=== PATIENT | male | born 1965 | race Caucasian/White ===

== ENCOUNTER 2019-01-12 19:26 | Inpatient (IN) | payer BC ==
[2019-01-12 20:25] LABS: #Basophils 0.1 thou/uL (0.0-0.2); #Lymphocytes 1.3 thou/uL (1.20-3.40); #Monocytes 0.7 thou/uL (0.11-0.59); #Neutrophils 9.1 thou/uL (1.40-6.50); %Basophils 0.5 % (0.0-1.0); %Eosinophils 0.4 % (0.0-10.0); %Lymphocytes 11.4 % (21.0-51.0); %Monocytes 6.3 % (0.0-10.0); %Neutrophils 81.4 % (42.0-75.0); Hemoglobin 14.5 g/dL (14.0-18.0); Mean Corpuscular HGB CONC 34.1 g/dL (32.0-36.0); Mean Corpuscular Volume 93.8 fL (78.0-98.0); Mean Platelet Volume 7.4 fL (7.4-10.4); Platelet Count 210 thou/uL (130-400); RBC Distribution Width 11.5 % (11.5-14.5); Red Blood Cell (RBC) Count 4.54 mill/uL (4.70-6.10); White Blood Cell (WBC) Count 11.1 thou/uL (4.8-10.8)
[2019-01-12 20:52] LABS: Acetaminophen Less than 6.0 mcg/mL (10.0-30.0); Alcohol 76 mg/dL (Less than 10); Salicylate Less than 8.0 mg/dL (15.0-30.0)
[2019-01-12 20:56] LABS: ALT (SGPT) 23 U/L (8-55); AST (SGOT) 26 U/L (5-34); Albumin 3.8 g/dL (3.5-5.0); Alkaline Phosphatase 53 U/L (40-110); Anion Gap 20 mmol/L (10-20); BUN (Urea Nitrogen) 6 mg/dL (8.4-25.7); Bilirubin, Total 0.5 mg/dL (0.2-1.2); Calc. Creatinine Clearance 0 mL/min (70-130); Calcium 8.3 mg/dL (7.8-10.44); Carbon Dioxide 13 mmol/L (22-29); Chloride 101 mmol/L (98-107); Estimated GFR-MDRD 78; Globulin 2.6 g/dL (2.4-3.5); Glucose 104 mg/dL (70-105); Potassium 4.2 mmol/L (3.5-5.1); Protein, Total 6.4 g/dL (6.0-8.3); Sodium 130 mmol/L (136-145)
--- NOTE | 2019-01-12 21:20 | RAD ---
LEFT FOREARM TWO VIEWS: History: Injury. Left forearm pain. FINDINGS/IMPRESSION: Left radius and ulna appear intact. POS: [facility]
--- NOTE | 2019-01-12 21:45 | CT ---
CT BRAIN WITHOUT CONTRAST: Date: 01/12/19 HISTORY: Fall. Loss of consciousness. FINDINGS: No evidence of acute infarct, hemorrhage, midline shift, or abnormal extra-axial fluid collections ar e seen. The ventricular size is appropriate and the basilar cisterns are patent. The bony calvarium i s intact. There is mucosal disease in the paranasal sinuses. IMPRESSION: No CT evidence of acute intracranial process. POS: [facility]
--- NOTE | 2019-01-12 21:46 | CT ---
CT CERVICAL SPINE WITH CORONAL AND SAGITTAL REFORMATIONS: Date: 01/12/19 HISTORY: Fall, neck pain. FINDINGS/IMPRESSION: There are degenerative changes, most prominent at C4-5 level. No acute fracture, subluxation, or face t malalignment identified. POS: [facility]
[2019-01-12] MEDS ORDERED: Morphine 4 MG/ML VIAL ONE (22:13)
--- NOTE | 2019-01-12 23:51 | MRI ---
MRI CERVICAL SPINE WITHOUT CONTRAST: History: Fall, neck pain. FINDINGS: Correlation is made with the CT scan performed earlier today at 8:22 p.m. Vertebral body heights are maintained. Multilevel degenerative changes are seen manifested by disc os teophyte complexes and facet hypertrophic changes. There is central canal stenosis at C4-5 and C6-7 l evels with impingement of the anterior spinal cord. There is cord edema noted at the C4 & C5 level. There is bilateral severe neural foraminal stenosis at C4-5 level, mild left sided neural foraminal s tenosis at C4, C5, C6 level and bilateral neural foraminal stenosis at C6-7 level (moderate on the ri ght and mild on the left). No tonsillar herniation is seen. IMPRESSION: 1. Degenerative changes with central canal and neural foraminal stenoses as above. 2. Cord impingement at C4-5 and C6-7 levels with cord edema at C4-5 level. POS: [facility]
[2019-01-13] MEDS ORDERED: Dexamethasone 10 MG/ML VIAL ONE (00:01)
[2019-01-13] MEDS ORDERED: Morphine 4 MG/ML VIAL ONE (00:01)
[2019-01-13] MEDS ORDERED: Dextrose 5% in Water 1,000 ML IV PRN (00:44)
[2019-01-13] MEDS ORDERED: Morphine 2 MG/ML SYRINGE SLOW IVP PRN (00:44)
[2019-01-13] MEDS ORDERED: Ondansetron ODT 4 MG TAB PO PRN (00:44)
[2019-01-13] MEDS ORDERED: Ondansetron PF 4 MG/2 ML Vial IVP PRN (00:44)
[2019-01-13] MEDS ORDERED: Dextrose 50% Abboject 50 ML SYRINGE SLOW IVP PRN (00:44)
[2019-01-13] MEDS ORDERED: traMADol HCl 50 MG TAB PO PRN (00:56)
[2019-01-13 01:09] LABS: Phosphorus 3.1 mg/dL (2.3-4.7)
[2019-01-13 01:20] LABS: Magnesium 1.8 mg/dL (1.6-2.6)
[2019-01-13] MEDS ORDERED: Magnesium 2 GM/50 ML 2 GM in Premix Bag 1 BAG IVPB SCH (02:00)
--- NOTE | 2019-01-13 02:24 | CON ---
DATE OF CONSULTATION: HISTORY OF PRESENT ILLNESS: The patient is a 53-year-old male, who came to the Emergency Department at [facility] following a series of what sound to be syncopal events earlier today. First of which, the patient states was around 8 o'clock this morning and then around noon and then most recently was around 5 or 6 this evening. He does report drinking 10 beers, but states he only started to consume this around 10:30 this morning, so well after the initial syncopal event. The patient states he has one prior occurrence of this type of event happening, which usually go on related to blood pressure medications that he no longer takes. states that his blood pressure was running quite low upon arrival. However, the most reading that I has on ER records is 108/68, which admittedly is lower than his normal, but still not terribly low, as a matter of fact right now he is 125/73 in the room, which is an improvement, but not profoundly different at least not to a point where I would assume he would have syncopal events related to hypotension. The patient ultimately reported that after this last syncopal event when he came back to while on the ground, he reports full paralysis and numbness in his legs and forearms and hands. This has since abated, and he has what appears to be his baseline motor function in all 4 extremities. He does report a left-sided deltoid pain as well as a burning sensation that is diffusely over the forearms and hands. This is polydermatomal and does not seen any specific peripheral nerve distribution either. It is conceivable that this is dysesthetic pains related to spinal cord impingement. He does have new MRI performed this evening in the Emergency Department that shows severe central canal stenosis at C4-C5 and C6-C7 with associated T2 signal change within the cervical spinal cord at C4-C5 to me on the [facility] imaging. This does appear to potentially be chronic in nature as opposed to an acute injury event, but this still could be the case. At bedside, the patient is lying recumbent with [place] collar in place. It is somewhat loose likely would be better served tightened. He has good motor strength in bilateral upper extremities and bilateral lower extremities demonstrating straight leg raise bilaterally with ease, lifting them off the bed. He has no significant sensory disturbance that I can discern in the bilateral upper or bilateral lower extremities. When I reached to grab his right hand, he has sudden onset of jolting pain in the right forearm again, so this limits my range of motion and further strength testing. Pupils are equal, round, and reactive to light. Head is normocephalic, atraumatic. ASSESSMENT: Central cord syndrome. PLAN: Plan from the Neurosurgery perspective, this is a non-surgical condition at present. I discussed with the patient and his at bedside that it may be conceivable that he will need a cervical spinal surgery in the coming months, but certainly not in the acute setting here while in the hospital. The theory of central cord syndrome does fit his situation as he did have a brief momentary quadriparesis, which has now rapidly resolved, and it left some tingling what sounds like potentially dysesthetic pains in the forearms, hands. RECOMMENDATIONS: Recommendation is soft cervical collar which he already has on at all times. He will need aggressive physical therapy, occupational therapy starting in the morning. They can advance diet as tolerated. Neurosurgery will continue to follow. Job ID: [id number]
--- NOTE | 2019-01-13 03:03 | HP ---
Primary care physician, Dr. Neal. REQUESTING PHYSICIAN: Luis Herzog DO CONSULTS: Neurosurgery, Dr. Russ. HISTORY OF PRESENT ILLNESS: This is a 53-year-old gentleman who arrived to the emergency room via ground EMS after having multiple falls after passing out at home today. The patient reports falling approximately 3 times today after standing as he felt unsteady. The patient denied any chest pain or shortness of breath prior to falling. The patient does drink approximately 10 to 12 drinks every other day. The patient did have approximately 10 drinks today. He also reports having a similar episode when he was taking lisinopril. The patient no longer takes lisinopril for his blood pressure as he stopped approximately a year ago. The patient complains of burning pain sensation in both upper extremities. The patient states that it starts from the fingertips all the way above the elbows. The patient initially felt generalized weakness and was unable to move. He states he felt like he was paralyzed after the last fall, which has improved. The patient was unable to get up and a family member found him on the floor. The patient does report hitting his face on the wall. The patient denies any recent illnesses, denies any fever, cough or cold. The patient does report some sneezing recently, but has not been taking over the counter medications. The patient was given morphine 4 mg two doses for pain in the emergency room and also Decadron 10 mg IV. REVIEW OF SYSTEMS: A 10-point review of systems is negative unless otherwise indicated in the above HPI. PAST MEDICAL HISTORY: Cerebral palsy, only deficit is one leg being shorter, depression, previous suicide attempt, hypertension, hyperlipidemia. HOME MEDICATIONS: 1. Diltiazem 180 mg once a day. 2. Duloxetine 60 mg at bedtime. 3. Simvastatin 10 mg at bedtime. 4. Tamsulosin 0.4 mg at bedtime. ALLERGIES: PENICILLIN, LISINOPRIL. PAST SURGICAL HISTORY: Bilateral lens replacement. SOCIAL HISTORY: The patient lives alone, has not worked in two months due to severe knee pain, marijuana use, daily to every other day alcohol use, denies tobacco use. FAMILY HISTORY: Significant for father had a heart attack at age 49. OBJECTIVE: VITAL SIGNS: Blood pressure 136/81, pulse 60, respirations 17, temperature 97.9, and SpO2 95% on room air. GENERAL: Middle-aged gentleman, awake, alert, lying in hospital bed, well- fitting [place] collar in place. HEENT: Red contusion on the right cheek and chin, normocephalic, otherwise atraumatic, pupils equal and reactive, extraocular muscles intact, mucous membranes dry, trachea midline. NECK: Well-fitting cervical collar in place. RESPIRATORY: Equal chest rise and fall, bilateral breath sounds clear, no wheezing, rales, or rhonchi. CARDIOVASCULAR: Regular rate, regular rhythm, no murmurs. ABDOMEN: Soft, nontender, and nondistended. EXTREMITIES: Moves all extremities, normal sensation in all extremities. Strength, bilateral upper extremities 4/5, burning and tingling sensation from the fingertips all the way to above the elbows in bilateral upper extremities, lower extremities unremarkable, distal pulses 2+ in all extremities. NEUROLOGIC: Oriented to person, place, and time. Normal speech, cranial nerves intact. DIAGNOSTIC STUDIES: 1. A 12-lead EKG, sinus cecilia with a right bundle branch block. 2. Brain CT. Impression; no evidence of acute intracranial process. 3. Cervical spine CT, degenerative changes, most prominent at C4-C5 level. 4. Left forearm x-ray, left radius and ulnar appear intact. 5. Cervical spine MRI. Degenerative changes with central and neural foraminal stenosis at C4, C5, C6, and C7 levels with impingement of the anterior spinal cord. There is cord edema noted at the C4 and C5 level. 6. Chest x-ray. Impression; no acute cardiopulmonary process. LABORATORY DATA: WBC 11.1, RBC 4.54, hemoglobin 14.5, hematocrit 42.6, MCH 32, platelets 210. Sodium 130, potassium 4.2, chloride 101, carbon dioxide 13, BUN 6, creatinine 1.00, estimated GFR 78, glucose 104, calcium 8.3, phosphorus 3.1, magnesium 1.8, AST 26, ALT 23, and alkaline phos 53. Troponin I less than 0.010. Serum total protein 6.4. Plasma alcohol 76. Urinalysis and urine drug screen pending. ASSESSMENT: 1. Syncopal episode with multiple recent falls. 2. Concussion. 3. Central cord syndrome. 4. Cord impingement at C4-C5 and C6-C7 levels with cord edema at C4-C5 level. 5. Hyponatremia. 6. History of hypertension, hyperlipidemia, cerebral palsy, alcohol abuse, marijuana abuse, and depression. PLAN: We will admit the patient to the intermediate care unit. Neurosurgery has been consulted and recommended the [place] collar at all times. Regular diet as tolerated. We will place a PT/OT consult to evaluate and treat. We will start the patient on Serax, multivitamin, and thiamine as he is a daily to every other day drinker. We will obtain a 2D echo and carotid ultrasound for a syncopal workup. We will get q.2 hours neuro checks. If unchanged, then can do q.4 neuro checks at noon tomorrow. The plan was discussed with the patient and the patient's sister, who agreed. The plan will be discussed with the attending after this dictation. Job ID: [id number] MTDD
[2019-01-13 07:48] LABS: Anion Gap 18 mmol/L (10-20); BUN (Urea Nitrogen) 7 mg/dL (8.4-25.7); Calc. Creatinine Clearance 0 mL/min (70-130); Calcium 9.4 mg/dL (7.8-10.44); Carbon Dioxide 16 mmol/L (22-29); Chloride 103 mmol/L (98-107); Estimated GFR-MDRD 79; Glucose 136 mg/dL (70-105); Potassium 4.4 mmol/L (3.5-5.1); Sodium 133 mmol/L (136-145)
--- NOTE | 2019-01-13 08:32 | RAD ---
PORTABLE UPRIGHT FRONTAL CHEST RADIOGRAPH: DATE: 01/13/2019. COMPARISON: None. HISTORY: Falls, syncope, hypotension. FINDINGS: There is mild prominence of the cardiac silhouette. No focal consolidation or alveolar edema. IMPRESSION: No acute findings. POS: [facility]
--- NOTE | 2019-01-13 08:50 | ULT ---
CAROTID ARTERIAL DOPPLER ULTRASOUND: DATE: 01/13/19 COMPARISON: None. HISTORY: Syncope. TECHNIQUE: Multiplanar [place] scale sonographic imaging of the arterial structures of the neck obtained with color flow/spectral analysis. FINDINGS: Antegrade blood flow and normal arterial waveforms are documented within the carotid and vertebral sy stem bilaterally. VESSEL PSV (cm/sec) Right CCA 118 Right ICA 75 Right ECA 85 Left CCA 119 Left ICA 63 Left ECA 101 ICA/CCA ratio is 0.6 on the right and 0.5 on the left. IMPRESSION: No hemodynamically significant stenosis on the basis of sonographic velocity criteria. POS: [facility]
[2019-01-13] MEDS: Senokot S 8.6-50 MG TAB PO SCH ×2 (09:22→21:14)
[2019-01-13] MEDS: Gabapentin 300 MG CAP PO SCH ×3 (09:23→21:14)
[2019-01-13] MEDS ORDERED: Thiamine 100 MG TAB ONE (09:28)
[2019-01-13] MEDS ORDERED: Famotidine 20 MG TAB ONE (09:28)
[2019-01-13] MEDS: Thiamine 100 MG TAB PO SCH (09:30)
[2019-01-13] MEDS: Famotidine 20 MG TAB PO SCH ×2 (09:31→21:14)
[2019-01-13 10:55] VITALS: BMI 34.9
--- NOTE | 2019-01-13 11:02 | PRG ---
DATE OF SERVICE: 01/13/2019 SUBJECTIVE: Mr. Heredia is a 53-year-old man who has been falling. He fell from a ground level position prior to this admission. The patient was found with cord edema at C4-5 levels. No cervical spine fractures are noted, however. Clinical examination is consistent with acute central cord syndrome. At the time of my evaluation, the patient is awake and alert. Pamela Coma Scale is 15. He reports improving strength with his upper and lower extremities. OBJECTIVE: HEENT: Pupils are equal, round, and reactive to light and accommodation. HEART: Reveals regular rate and rhythm. No murmurs or gallops auscultated. LUNGS: Clear to auscultation bilaterally. Breathing, regular and nonlabored. ABDOMEN: Soft, nontender, and nondistended. NEUROLOGIC: Cranial nerves 2 through 12 grossly intact bilaterally. MUSCULOSKELETAL: Reveals 4/5 muscle strength in bilateral upper and lower extremities. LABORATORY FINDINGS: Include metabolic profile; sodium 133, potassium is 4.4, chloride is 103, bicarb is 16, BUN 7, creatinine 0.99, and glucose 136. IMPRESSIONS: 1. Post injury day #1 status post ground level fall. 2. Central cord syndrome, improving. 3. History of chronic alcoholism. PLAN: 1. Increase activity per Physical and Occupational therapy. 2. Anticipate discharge to inpatient rehabilitation versus home with outpatient physical and occupational therapy within the next 24 to 48 hours. We will maintain prophylaxis against VTE and DVT. Above findings and plan discussed with the patient who indicates understanding information given. I have answered his questions. Job ID: [id number]
[2019-01-13] MEDS: Sodium Chloride 0.9% 1,000 ML IV SCH ×2 (13:08→13:09)
[2019-01-13] MEDS: Acetaminophen 500 MG TAB PO SCH ×3 (13:11→18:30)
[2019-01-13] MEDS: traMADol HCl 50 MG TAB PO PRN ×2 (13:12→18:30)
[2019-01-13] MEDS: Oxazepam 10 MG CAP PO SCH ×3 (13:52→21:14)
[2019-01-13] MEDS: Multivitamin W/ Minerals 1 TAB PO SCH (14:52)
--- NOTE | 2019-01-13 16:30 | PRG ---
DATE OF SERVICE: 01/13/2019 Mr. Heredia is a 53-year-old gentleman with a history of recent falls and questionable syncopal events. He presented to the ER with quadriparesis, where he underwent imaging, which was negative for fracture, but did show 2 areas of significant cervical spondylitic stenosis at C4-C5 and C6-C7. There is also a T2 signal within the spinal cord, consistent with injury. Fortunately, for him, his neurologic function is slowly improving. He is currently wearing a cervical spine collar. His injury is consistent with a central cord phenomenon. From a neurosurgical perspective, he will not require acute neurosurgical intervention, but will likely need a decompressive procedure over the following weeks. He can be discharged to rehab or appropriate home with outpatient physical therapy as needed. He should continue to wear the cervical spine collar. We will make plans for outpatient followup with him within the next 1-2 weeks. Job ID: [id number]
[2019-01-13 20:35] LABS: Amphetamine Not Detected (NotDetected); Barbiturates Screen Not Detected (NotDetected); Benzodiazepine Screen Detected (NotDetected); Cocaine Metabolite Screen Not Detected (NotDetected); Medtox Control Line Valid? VALID (VALID); Medtox Reader # READER 4; Methadone Not Detected (NotDetected); Methamphetamine Not Detected (NotDetected); Opiate Screen Detected (NotDetected); Oxycodone Screen Not Detected (NotDetected); Phencyclidine (PCP) Not Detected (NotDetected); THC/Cannabinoid Screen Detected (NotDetected); Tricyclic Screen Not Detected (NotDetected)
[2019-01-13 20:38] LABS: Bacteria/HPF None Seen HPF (None Seen); Bilirubin Negative (Negative); Blood, Urine Negative (Negative); Clarity Clear (Clear); Glucose, Urine (Dipstick) 150 mg/dL (Negative); Leukocyte Negative Leu/uL (Negative); Mucous/LPF 1+ LPF (<2+); Nitrite Negative (Negative); Protein, Urine (Dipstick) 30 mg/dL (Neg-Trace); Squamous Epithelial None Seen HPF (0-3); Urobilinogen Normal mg/dL (Less than 2); WBC/HPF 0-3 HPF (0-3)
[2019-01-13 20:40] LABS: Urine Culture Reflex No No
[2019-01-13] MEDS: Magnesium Chloride 64 MG TAB PO SCH (21:14)
--- NOTE | 2019-01-13 22:17 | PRG ---
DATE OF SERVICE: 01/13/2019 SUBJECTIVE: The patient remains on the surgical floor. The patient is hospital day #1, status post fall from ground level with multiple falls. The patient is currently resting comfortably with a well-fitting [place] collar in place. The patient reports he has finally been able to rest. The patient reports that the burning sensation and strength are improving in his upper extremities. The patient voices no complaints or concerns at this time. OBJECTIVE: VITAL SIGNS: Stable, afebrile. GENERAL: Middle-aged gentleman, resting comfortably, in no acute distress. LUNGS: Breathing is regular and nonlabored. NEUROLOGICAL: Cranial nerves intact. MUSCULOSKELETAL: Upper manager cardiac cath strength 4/5 bilateral. DIAGNOSTICS: Echocardiogram, impression, ejection fraction is visually estimated at 50% to 55%, E/A flow reversal noted suggestive of diastolic dysfunction. Mild mitral regurg present. Mild tricuspid regurgitation. IMPRESSION: 1. Post injury day #1 status post ground level fall. 2. Central cord syndrome, improving. 3. History of chronic alcoholism. PLAN: Continue to increase physical and occupational therapy. The patient is pending placement to inpatient rehab for continued physical and occupational therapy. We will continue mechanical DVT prophylaxis. The plan was discussed with the patient and his family who agree. Job ID: [id number] MTDD
[2019-01-14] MEDS: Acetaminophen 500 MG TAB PO SCH ×4 (00:12→18:51)
[2019-01-14] MEDS: hydrALAZINE 20 MG/ML VIAL SLOW IVP PRN (00:13)
[2019-01-14] MEDS: Oxazepam 10 MG CAP PO SCH ×3 (06:28→21:20)
[2019-01-14] MEDS ORDERED: cloNIDine 0.1 MG TAB PO PRN (06:39)
[2019-01-14] MEDS: Losartan 25 MG TAB PO SCH (08:22)
[2019-01-14] MEDS: Tamsulosin HCl 0.4 MG CAP PO SCH (08:22)
[2019-01-14] MEDS: Senokot S 8.6-50 MG TAB PO SCH ×2 (08:22→21:20)
[2019-01-14] MEDS: Simvastatin 40 MG TAB PO SCH (08:23)
[2019-01-14] MEDS: DULoxetine 60 MG CAP PO SCH (08:23)
[2019-01-14] MEDS: Famotidine 20 MG TAB PO SCH ×2 (08:23→21:20)
[2019-01-14] MEDS: Gabapentin 300 MG CAP PO SCH ×3 (08:23→21:20)
[2019-01-14] MEDS: Multivitamin W/ Minerals 1 TAB PO SCH (08:23)
[2019-01-14] MEDS: Thiamine 100 MG TAB PO SCH (08:24)
[2019-01-14] MEDS: Enoxaparin Sodium 40 MG/0.4 ML SYRINGE SC SCH (08:24)
--- NOTE | 2019-01-14 13:31 | PRG ---
DATE OF SERVICE: 01/14/2019 SUBJECTIVE: The patient was seen this morning lying in bed, C-collar in place with no signs of acute distress. He reported pain is well controlled. He had no acute events overnight and had no complaints at the time of my evaluation. He was able to ambulate with physical therapy. OBJECTIVE: VITAL SIGNS: Temperature 98.2, pulse 90, respirations 18, oxygen saturation 96% on room air, blood pressure 144/90. GENERAL: Well-appearing middle-aged male, lying in bed with no signs of acute distress. PULMONARY: Equal chest rise and fall, clear breath sounds bilaterally. No signs of acute respiratory distress. CARDIAC: Regular rate and rhythm. No murmurs, gallops, rubs. GI: Abdomen is soft, nontender, nondistended. EXTREMITIES: 2+ pulses in all extremities. Gross motor and sensation are intact. 4/5 strength in bilateral upper extremities and hand riding teacher. NEUROLOGIC: GCS is 15. LABORATORY FINDINGS: There are no new laboratory findings to discuss. DIAGNOSTIC FINDINGS: There are no new diagnostic findings to report. ASSESSMENT: 1. Status post syncopal fall. 2. Central cord syndrome with a segment of C4 through C5 spinal stenosis. 3. Hyponatremia, improving, likely chronic. 4. Acute alcohol intoxication, resolved. 5. History of hypertension, cerebral palsy, depression, and alcohol abuse. PLAN: Continue current diet and pain regimen. Continue physical and occupational therapy. We restarted the patient's home losartan today for better blood pressure control. Continue other home medications. Continue Serax, vitamin, multivitamins and folic acid. Carotid ultrasound and echo studies demonstrated no cardiac etiology for syncopal type episodes. This is likely due to alcohol abuse and withdrawal type symptoms. We will continue to closely monitor the patient's mentation and blood pressure. The patient is pending discharge to acute rehab facility. He is ready for discharge at this time. The patient was discussed with Dr. Moreno before this dictation. Job ID: [id number]
[2019-01-14] MEDS: Magnesium Chloride 64 MG TAB PO SCH (13:57)
[2019-01-14] MEDS: traMADol HCl 50 MG TAB PO PRN (18:50)
[2019-01-15] MEDS: Acetaminophen 500 MG TAB PO SCH ×4 (01:13→18:35)
--- NOTE | 2019-01-15 03:06 | PRG ---
DATE OF SERVICE: 01/14/2019 SUBJECTIVE: Patient was seen this evening on the surgical floor. Patient resting comfortably, in no acute distress. The patient's vital signs are stable and the patient remains afebrile. PLAN: Continue supportive care. Continue [place] collar at all times. The patient is pending placement to inpatient rehab. Job ID: [id number]
[2019-01-15] MEDS: hydrALAZINE 20 MG/ML VIAL SLOW IVP PRN (04:21)
[2019-01-15] MEDS: Oxazepam 10 MG CAP PO SCH ×3 (06:12→21:21)
[2019-01-15] MEDS: Thiamine 100 MG TAB PO SCH (08:20)
[2019-01-15] MEDS: Famotidine 20 MG TAB PO SCH ×2 (08:20→21:20)
[2019-01-15] MEDS: Senokot S 8.6-50 MG TAB PO SCH ×2 (08:20→21:20)
[2019-01-15] MEDS: Gabapentin 300 MG CAP PO SCH ×3 (08:20→21:20)
[2019-01-15] MEDS: Tamsulosin HCl 0.4 MG CAP PO SCH (08:21)
[2019-01-15] MEDS: Simvastatin 40 MG TAB PO SCH (08:21)
[2019-01-15] MEDS: Enoxaparin Sodium 40 MG/0.4 ML SYRINGE SC SCH (08:21)
[2019-01-15] MEDS: Multivitamin W/ Minerals 1 TAB PO SCH (08:21)
[2019-01-15] MEDS: DULoxetine 60 MG CAP PO SCH (08:21)
[2019-01-15] MEDS: Losartan 25 MG TAB PO SCH (08:21)
--- NOTE | 2019-01-15 15:49 | PRG ---
DATE OF SERVICE: 01/15/2019 SUBJECTIVE: The patient was seen this morning during rounds. He was lying in bed, resting comfortably. C-collar was in place. Reported pain was well controlled. He was tolerating a regular diet. He is working with Physical and Occupational Therapy. OBJECTIVE: VITAL SIGNS: Temperature 98.5, pulse 86, respirations 18, oxygen saturation 95% on room air, and blood pressure 143/92. GENERAL: Well-appearing, middle-aged male, lying in bed with no signs of acute distress. PULMONARY: Equal chest rise and fall. Clear breath sounds bilaterally. No signs of acute respiratory distress. CARDIAC: Regular rate and rhythm. No murmurs, gallops, or rubs. GI: Abdomen is soft, nontender, nondistended. EXTREMITIES: 2+ pulses in all extremities. Gross motor and sensation are intact. 4/5 strength in bilateral upper extremities and handgrip, 5/5 strength in bilateral lower extremities. NEUROLOGIC: GCS is 15. LABORATORY FINDINGS: There are no new laboratory findings to discuss. DIAGNOSTIC FINDINGS: There are no new diagnostic findings to discuss. ASSESSMENT: 1. Status post syncopal fall. 2. Central cord syndrome with segment of C4 through C5 spinal stenosis. 3. Hyponatremia, likely chronic, improving. 4. Acute alcohol intoxication, resolved. 5. History of hypertension, cerebral palsy, depression, and alcohol abuse. PLAN: Continue current diet and pain regimen. Continue physical and occupational therapy. The patient is back on all of his home medications as clinically indicated. Continue Serax, multivitamins, folic acid, and thiamine. Cardiac workup is negative for syncopal type fall. The patient is ready for discharge at this time. He is pending placement in acute rehab facility. He has been accepted to the facility, however, we are waiting for insurance approval. We will continue to monitor the patient at this time. This patient was seen and examined by Dr. Moreno and myself this morning during rounds. Job ID: [id number]
--- NOTE | 2019-01-16 00:07 | PRG ---
DATE OF SERVICE: SUBJECTIVE: Patient remains on the surgical floor. Patient is currently resting comfortably with a well-fitting cervical collar in place. Patient's vital signs are stable. Patient remains afebrile. PLAN: Patient is pending placement to inpatient rehab, most likely, patient will be accepted tomorrow. Continue supportive care and pain regimen. Job ID: [id number]
[2019-01-16] MEDS: Acetaminophen 500 MG TAB PO SCH ×2 (00:24→06:07)
[2019-01-16] MEDS: Oxazepam 10 MG CAP PO SCH (06:07)
[2019-01-16] MEDS: Enoxaparin Sodium 40 MG/0.4 ML SYRINGE SC SCH (08:05)
[2019-01-16] MEDS: Famotidine 20 MG TAB PO SCH (08:06)
[2019-01-16] MEDS: Senokot S 8.6-50 MG TAB PO SCH (08:06)
[2019-01-16] MEDS: Losartan 25 MG TAB PO SCH (08:06)
[2019-01-16] MEDS: Tamsulosin HCl 0.4 MG CAP PO SCH (08:06)
[2019-01-16] MEDS: DULoxetine 60 MG CAP PO SCH (08:06)
[2019-01-16] MEDS: Gabapentin 300 MG CAP PO SCH (08:07)
[2019-01-16] MEDS: Multivitamin W/ Minerals 1 TAB PO SCH (08:07)
[2019-01-16] MEDS: Simvastatin 40 MG TAB PO SCH (08:07)
[2019-01-16] MEDS: Thiamine 100 MG TAB PO SCH (08:07)
[2019-01-16 10:47] VITALS: BP 129/85; TEMP 98.3
--- NOTE | 2019-01-17 11:22 | DIS ---
DATE OF ADMISSION: 01/13/2019 DATE OF DISCHARGE: 01/16/2019 ADMISSION DIAGNOSES: Syncopal fall, central cord syndrome with C4 through C5 cord edema, and hyponatremia. DISCHARGE DIAGNOSES: Syncopal fall, central cord syndrome with C4 through C5 cord edema, and hyponatremia. CONSULTING PHYSICIAN: Dr. Russ of Neurosurgery. PROCEDURES: None. HOSPITAL COURSE: The patient is a 53-year-old male, who presented to the emergency department after having multiple syncopal falls while intoxicated. The patient was found to have central cord syndrome with cord edema at C4 through C5. Neurosurgery was consulted, who recommended conservative management with [place] collar and followup in 1 to 2 weeks. The patient received physical and occupational therapy as well as a workup for syncope, which was negative. His lower extremity and upper extremity weakness are both improved, and he was discharged home ultimately as he was not approved by insurance to go to rehab. He will receive outpatient physical therapy. At the time of discharge, the patient's pain was well controlled. He was ambulating without difficulty. He was tolerating his diet, and he was voiding without issues. DISCHARGE DISPOSITION: Home. DISCHARGE CONDITION: Satisfactory. PHYSICAL EXAMINATION: VITAL SIGNS: Temperature 98.5, pulse 86, respirations 18, oxygen saturation 94% on room air, blood pressure 148/101. GENERAL: A well-appearing, middle-aged male, sitting up in chair with no signs of acute distress. PULMONARY: Equal chest rise and fall. Clear breath sounds bilaterally. No signs of acute respiratory distress. CARDIAC: Regular rate and rhythm. No murmurs, gallops, or rubs. GASTROINTESTINAL: Soft, nontender, nondistended. EXTREMITIES: 2+ pulses in all extremities. Gross motor and sensation are intact. 4/5 strength in bilateral upper extremities, 5/5 strength in bilateral lower extremities. NEUROLOGIC: GCS is 15. C-collar in place and fitting appropriately. DISCHARGE INSTRUCTIONS: The patient was discharged home with home physical therapy. Activity as tolerated. Heart healthy diet. C-collar and walker. DISCHARGE MEDICATIONS: Include, 1. Tylenol. 2. Cardizem. 3. Cymbalta. 4. Gabapentin. 5. Losartan. 6. Simvastatin. 7. Flomax. 8. Tramadol. FOLLOWUP APPOINTMENTS: The patient is to follow up with Dr. Russ in 1 to 2 weeks. No need for followup with Dr. Moreno. This is a summary of the patient's hospitalization. For full details, please see his medical record in its entirety. Job ID: [id number]
--- NOTE | 2019-01-17 20:50 | PQF ---
MARQUIS VERAS LAYLA, [place] [id number] [facility] [id number] CLINICAL DOCUMENTATION CLARIFICATION FORM: POST DISCHARGE Addendum to original discharge summary date: ____ Late entry note date: __ DATE: 01/17/19 ATTN: Yu Agudelo Please exercise your independent, professional judgment in responding to the clarification form. Clinical indicators are provided on the bottom of this form for your review Can you please further specify if Quadriparesis is ruled in or ruled out? Quadriparesis [ X ] Ruled in diagnosis [ X ] Continue to treat [ ] Resolved [ ] Ruled out diagnosis [ ] Cannot rule out diagnosis [ ] Other diagnosis please specify [ ] Unable to determine In addition, please specify: Present on Admission (POA): [ X ] Yes [ ] No [ ] Unable to determine For continuity of documentation, please document condition throughout progress notes and discharge summary. Thank You. CLINICAL INDICATORS - SIGNS / SYMPTOMS / LABS H and P pg.1- moves all extremities, normal sensation in all extremities Consult Dr. Gómez pg.1 01/13- reports full paralysis and numbness in his legs and fore arms and hands Consult Dr. Gómez pg.2 01/13- he did have brief momentary quadriparesis, which has now rapidly resolved PN 01/13 Dr. Russ pg.1- he presented to the ER with quadriparesis DS pg.1- found to have central cord syndrome with cord edema at C4 through C5 DS pg.1- his lower extremity and upper extremity weakness are both improved RISK FACTORS Syncopal episodes and Multiple falls- H and P pg.3 cerebral palsy- H and P pg.1 Hypertension- H and P pg.1 Hyperlipidemia- H and P pg.1 Central cord syndrome- H and P pg.3 Alcohol abuse- H and P pg.3 TREATMENTS Physical and Occupational therapy- DS pg.1 CT Brain 01/[address] 01/12 Cervical Spine MRI Cervical collar- PN 01/15 IV Fluids- MAR (This form is maintained as a part of the permanent medical record) 2014 [employer]. All Rights Reserved Mike [email or web address] [not provided] MTDD
== END 2019-01-16 11:15 | disposition home health service (06) | DRG 52 ==
LOC: ERS 19:26 → ERHOLD 01-13 02:01 → SURG A 01-13 10:37
PROVIDERS: ADMIT Neurological Surgery; ATTEND Neurological Surgery
DX: S14.124A Central cord syndrome at C4 level of cervical spinal cord, initial encounter (principal); G82.50 Quadriplegia, unspecified; S06.0X9A Concussion with loss of consciousness of unspecified duration, initial encounter; E87.1 Hypo-osmolality and hyponatremia; M48.02 Spinal stenosis, cervical region; G80.9 Cerebral palsy, unspecified; F32.9 Major depressive disorder, single episode, unspecified; I10 Essential (primary) hypertension; W18.30XA Fall on same level, unspecified, initial encounter; I45.10 Unspecified right bundle-branch block; F12.10 Cannabis abuse, uncomplicated; F17.210 Nicotine dependence, cigarettes, uncomplicated; F10.229 Alcohol dependence with intoxication, unspecified; E78.5 Hyperlipidemia, unspecified; Z79.899 Other long term (current) drug therapy; Z88.0 Allergy status to penicillin; Z91.81 History of falling; Z88.8 Allergy status to other drugs, medicaments and biological substances; E78.00 Pure hypercholesterolemia, unspecified; S14.0XXA Concussion and edema of cervical spinal cord, initial encounter; Y92.009 Unspecified place in unspecified non-institutional (private) residence as the place of occurrence of the external cause
CPT/HCPCS: 36415; 36416; 70450; 71045; 72125; 72141; 80048; 80053; 80306; 80307; 81001; 83735; 84100; 84484; 85025; 93005; 93306; 93880; 96374; 96375; 96376; J0360; J1100; J1650; J2270; L0120

== ENCOUNTER 2019-01-21 14:29 | Observation (INO) | payer BC ==
--- NOTE | 2019-01-21 14:56 | RAD ---
EXAM: CHEST ONE VIEW HISTORY: Low blood pressure and syncope. COMPARISON: 01/13/2019 FINDINGS: Cardiac silhouette is magnified by projection but stable in size and probably borderline enlarged. Th e pulmonary vasculature is within normal limits. The lungs are clear. The osseous structures are intact. IMPRESSION: No acute cardiopulmonary process.
[2019-01-21 15:15] LABS: #Basophils 0.1 thou/uL (0.0-0.2); #Eosinphils 0.1 thou/uL (0.0-0.7); #Monocytes 1.4 thou/uL (0.11-0.59); #Neutrophils 6.8 thou/uL (1.40-6.50); %Basophils 1.1 % (0.0-1.0); %Eosinophils 1.1 % (0.0-10.0); %Monocytes 13.3 % (0.0-10.0); %Neutrophils 65.5 % (42.0-75.0); Hemoglobin 15.8 g/dL (14.0-18.0); Mean Corpuscular HGB CONC 33.8 g/dL (32.0-36.0); Mean Corpuscular Volume 94.7 fL (78.0-98.0); Mean Platelet Volume 7.1 fL (7.4-10.4); Platelet Count 320 thou/uL (130-400); RBC Distribution Width 11.6 % (11.5-14.5); Red Blood Cell (RBC) Count 4.94 mill/uL (4.70-6.10); White Blood Cell (WBC) Count 10.3 thou/uL (4.8-10.8)
[2019-01-21 15:23] LABS: PTT 24.2 SEC (22.9-36.1); Prothrombin Time 12.8 SEC (12.0-14.7)
[2019-01-21] MEDS ORDERED: Dexamethasone 10 MG/ML VIAL ONE (15:32)
[2019-01-21 15:51] LABS: ALT (SGPT) 44 U/L (8-55); AST (SGOT) 20 U/L (5-34); Albumin 4.5 g/dL (3.5-5.0); Alkaline Phosphatase 57 U/L (40-110); Anion Gap 15 mmol/L (10-20); BUN (Urea Nitrogen) 17 mg/dL (8.4-25.7); Bilirubin, Total 0.8 mg/dL (0.2-1.2); Calc. Creatinine Clearance 0 mL/min (70-130); Carbon Dioxide 23 mmol/L (22-29); Chloride 105 mmol/L (98-107); Estimated GFR-MDRD 46; Globulin 2.5 g/dL (2.4-3.5); Glucose 92 mg/dL (70-105); Lipase 59 U/L (8-78); Magnesium 2.2 mg/dL (1.6-2.6); Potassium 4.7 mmol/L (3.5-5.1); Sodium 138 mmol/L (136-145)
[2019-01-21 16:20] LABS: Bacteria/HPF None Seen HPF (None Seen); Bilirubin Negative (Negative); Blood, Urine Negative (Negative); Clarity Clear (Clear); Glucose, Urine (Dipstick) Normal (Negative); Leukocyte Negative Leu/uL (Negative); Nitrite Negative (Negative); Protein, Urine (Dipstick) 100 mg/dL (Neg-Trace); RBC/HPF 0-3 HPF (0-3); Squamous Epithelial 0-3 HPF (0-3)
[2019-01-21 18:16] LABS: Lactic Acid 0.8 mmol/L (0.5-2.2)
[2019-01-21 18:55] VITALS: BMI 33.5
[2019-01-21] MEDS: Sodium Chloride 0.9% 1,000 ML IV SCH (19:27)
[2019-01-21] MEDS ORDERED: Atorvastatin Calcium 20 MG TAB PO SCH (21:00)
[2019-01-21] MEDS ORDERED: Acetaminophen 325 MG TAB PO PRN (22:50)
[2019-01-21] MEDS ORDERED: Senokot S 8.6-50 MG TAB PO PRN (22:50)
--- NOTE | 2019-01-22 01:35 | HP ---
PRIMARY CARE PHYSICIAN: Dr. Neal. CHIEF COMPLAINT: Near syncope, low blood sugar. HISTORY OF PRESENT ILLNESS: Mr. Heredia is a 53-year-old man who reported to the emergency room today after complaining of a 3-week period of intermittent syncope, presyncope, lightheadedness, some dizziness and reports some low blood pressure this morning. He was recently discharged from this facility on 01/16/2019 for similar complaints, was admitted at that time by trauma service, was seen by Dr. Russ of Neurology, was found to have a central cord syndrome with cord edema at C4 through C5. They recommended an [place] collar and follow up in the next 1 to 2 weeks. The patient reports that they called today for a followup appointment and is not scheduled to see him for several weeks, was not wearing [place] collar to the emergency room. He reports that he has had some ongoing left arm weakness, but reports that it has gotten better over the last couple of weeks. He denies any medication changes. He denies any injuries or trauma. Reports that he was taken off lisinopril and put on losartan, but that was over a year ago. The patient was found to have acute kidney injury. Creatinine 1.59. Lactic acid initially 3.7, but came down to 0.8. Initial troponin was undetectable. TSH was 1.39. Cortisol level 1.5. The patient did have an echocardiogram on this last admission. EF is estimated at 50% to 55%. Diastolic dysfunction was noted. Mild mitral regurgitation, mild tricuspid regurgitation. MRI on 01/12 shows degenerative changes at central canal and formal stenosis. Cord impingement at C4 and 5, 6 and 7 with some cord edema at C4-5. The patient denies any worsening neck pain, weakness, numbness, tingling. Reports that the left arm weakness has improved. The patient will be admitted to the observation unit for further management of syncope. PAST MEDICAL HISTORY: Pertinent for cerebral palsy, hyperlipidemia, hypertension, and large prostate. PAST SURGICAL HISTORY: Bilateral lens placement. PSYCHIATRIC HISTORY: Depression. SOCIAL HISTORY: Lives with his family. Reports that he drinks between 8 to 12 beers every 2 to 3 days. Uses marijuana about once a week. Vapes, reports that his nicotine level in the vaping is very low when he reports that he is going to try and quit after that. KNOWN ALLERGIES: Lisinopril, penicillins. REVIEW OF SYSTEMS: CONSTITUTIONAL: The patient denies chills and fever. CARDIOVASCULAR: Denies any chest pain, shortness of breath. Does report that his blood pressure was low this morning. Some syncope, intermittent, usually when he changes position and has been going on for the last 3 to 4 weeks. RESPIRATORY: Denies cough. GASTROINTESTINAL: Denies any abdominal pain, nausea, vomiting, diarrhea. MUSCULOSKELETAL: Reports improving left arm numbness and tingling. Reports that the left arm weakness has improved. Denies any skin changes. All systems reviewed and are negative unless mentioned in the HPI. PHYSICAL EXAMINATION: VITAL SIGNS: Temperature is 98.1, pulse is 77, respirations are 16, pO2 sats are 96% on room air, blood pressure sitting 120/63, standing 108/62, and supine 128/66. CONSTITUTIONAL: Patient appears nontoxic. He is alert, oriented to person, place, and time. HEENT: Head is atraumatic and normocephalic. Eyes; eyelids are normal to inspection. Pupils are equally round and reactive to light. ENT, mouth exam is normal. Mucous membranes are moist. NECK: Normal range of motion. Trachea is midline. There is no point tenderness. RESPIRATORY: Chest, breath sounds are clear. Chest expansion is equal. CARDIOVASCULAR: Regular heart rate and rhythm. Heart sounds are normal. ABDOMEN: Nontender. Bowel sounds are heard. BACK: Normal range of motion. No tenderness of upper extremity. Range of motion normal. Motor strength is normal. Radial pulses are normal. EXTREMITIES: Lower extremity, normal inspection. Normal range of motion. Motor strength is normal. Pedal pulses are normal. NEUROLOGIC: Patient is oriented to person, place, and time. He has 4/5 strength on the left arm, 5/5 on the right. Sensation is intact bilaterally. EKG shows normal sinus rhythm, beats per minute 76. Has an incomplete right bundle branch block. ST segments are normal. T-waves are normal. PLAN/ASSESSMENT: 1. Orthostatic hypotension. We will recheck vital signs which will include orthostatic vital signs, normal saline at 75 mL an hour has been ordered. We will obtain a cortisol in the morning, folic acid, B12. Hold blood pressure medicines for now. Also hold Flomax. 2. Recent trauma with admission for central cord syndrome C4 through C5. As the patient to call to see if he can get his [place] collar brought to the hospital. Should wear while hospitalized, can take off for shower. We have asked PT/OT to evaluate. 3. Acute renal injury. Gentle hydration. We will recheck in the morning. Hold any nephrotoxic agents. 4. Gastrointestinal and deep venous thrombosis prophylaxis is started. Case was discussed with Dr. Simpson, who agrees with plan. Hospital course dependent on clinical findings. Job ID: [id number]
[2019-01-22 05:47] LABS: #Lymphocytes 0.7 thou/uL (1.20-3.40); #Monocytes 0.2 thou/uL (0.11-0.59); #Neutrophils 6.7 thou/uL (1.40-6.50); %Basophils 0.1 % (0.0-1.0); %Eosinophils 0.2 % (0.0-10.0); %Lymphocytes 9.1 % (21.0-51.0); %Monocytes 2.4 % (0.0-10.0); %Neutrophils 88.3 % (42.0-75.0); Hemoglobin 14.2 g/dL (14.0-18.0); Mean Corpuscular HGB CONC 32.9 g/dL (32.0-36.0); Mean Corpuscular Hemoglobin 30.9 pg (27.0-31.0); Mean Corpuscular Volume 93.9 fL (78.0-98.0); Mean Platelet Volume 7.2 fL (7.4-10.4); Platelet Count 310 thou/uL (130-400); RBC Distribution Width 11.7 % (11.5-14.5); White Blood Cell (WBC) Count 7.6 thou/uL (4.8-10.8)
[2019-01-22 06:09] LABS: Anion Gap 13 mmol/L (10-20); BUN (Urea Nitrogen) 18 mg/dL (8.4-25.7); Calc. Creatinine Clearance 127 mL/min (70-130); Calcium 9.2 mg/dL (7.8-10.44); Carbon Dioxide 19 mmol/L (22-29); Chloride 109 mmol/L (98-107); Estimated GFR-MDRD 83; Glucose 149 mg/dL (70-105); Potassium 4.6 mmol/L (3.5-5.1); Sodium 136 mmol/L (136-145)
[2019-01-22] MEDS ORDERED: Gabapentin 300 MG CAP PO SCH (09:00)
[2019-01-22] MEDS ORDERED: DULoxetine 60 MG CAP PO SCH (09:00)
[2019-01-22] MEDS ORDERED: Famotidine 20 MG TAB PO SCH (09:00)
[2019-01-22] MEDS: Sodium Chloride 0.9% 1,000 ML IV SCH (09:25)
[2019-01-22] MEDS ORDERED: Folic Acid 1 MG TAB PO SCH ×2 (12:17→12:30)
[2019-01-22 12:30] VITALS: TEMP 98.2
[2019-01-22] MEDS ORDERED: Tamsulosin HCl 0.4 MG CAP PO SCH (13:15)
[2019-01-22 15:04] VITALS: BP 177/90
[2019-01-23] MEDS ORDERED: Folic Acid 1 MG TAB PO SCH (09:00)
--- NOTE | 2019-01-24 08:09 | DIS ---
DATE OF ADMISSION: 01/21/2019 DATE OF DISCHARGE: 01/22/2019 DISCHARGE DIAGNOSES: Syncope secondary to orthostatic hypotension with exacerbation secondary to alcohol abuse, folate deficiency. SECONDARY DISCHARGE DIAGNOSES: Hyperlipidemia, benign prostatic hyperplasia. CONSULTATIONS: None. PROCEDURES: None. BRIEF HISTORY OF PRESENT ILLNESS: This is a 53-year-old male patient with a past medical history of hypertension, who presented to the emergency room with multiple episodes of passing out. The patient recently discharged on the for similar complaints due to a fall and ended up having central cord syndrome and was discharged with an [place] collar. He had some presyncopal symptoms while ambulating and believed he passed out. He was started on losartan two months ago for hypertension and felt his symptoms worsened afterwards. He previously had been on lisinopril. He is on diltiazem for years. HOSPITAL COURSE: Orthostatic syncope secondary to orthostatic hypotension: The patient had orthostatics checked, which were noted to be positive with a blood pressure of 120 sitting, which decreased to 108 while standing. The patient received IV fluids overnight. His repeat orthostatics were negative and the patient denied any complaints of dizziness. Initially, all of his outpatient medications were held. However, he was resumed on his Flomax in the afternoon on the day of discharge. Repeat orthostatics were negative. Therefore, he was told to take half a dose of his losartan 25 mg at home. If he becomes syncopal after this, then he was instructed to stop taking it; however, if his blood pressure continues to increase, then he can increase his losartan back up to 50 mg. If his blood pressure is persistently elevated, then he can call his PCP and ask for a prescription for diltiazem 120 mg instead of 180 mg. For now, he will just be taking Flomax and losartan 25 mg. He was also advised to stop drinking alcohol. The patient states that he drinks 6 to 8 beers every 2 days and does that because he is bored. Alcohol abuse: The patient was advised to stop drinking alcohol. He was started on thiamine and folic acid supplementation empirically. His LFTs on admission were normal. Folate deficiency: The patient was noted to have a folate level of 6.50. He was discharged on folic acid 1 mg daily. DISCHARGE PHYSICAL EXAMINATION: VITAL SIGNS: Orthostatic vitals show a sitting blood pressure of 150/86, standing of 141/85, supine 177/90. His heart rate was 92, respiratory rate 18, O2 saturations 98% on room air, temperature is 98.2. GENERAL: The patient is alert, awake, oriented x3. CVS: Regular rate and rhythm with no murmurs, rubs, or gallops. LUNGS: Clear to auscultation bilaterally. ABDOMEN: Positive bowel sounds, soft, nontender, nondistended. EXTREMITIES: There is no significant edema. NEUROLOGIC: The patient is able to move his upper and his lower extremities. He has 5/5 strength in upper and lower extremities. The patient reports subjective numbness in his left thumb, index, and middle finger and some numbness on his right thumb. However, objectively, his sensation is equally intact. PERTINENT LABORATORY DATA: CBC on 01/22: Unremarkable. BMP on 01/22: Showed a chloride of 109, bicarb of 19, glucose of 149. Folate: 6.50, which was low. Vitamin B12: 251. Cortisol level was less than 1.0. Lactic acid was 3.7, which improved to 0.8. PERTINENT IMAGING STUDIES: Chest x-ray on 01/21: showed no acute disease. EKG showed normal sinus rhythm with incomplete right bundle-branch block. DISCHARGE CONDITION: Stable. ACTIVITY: The patient was advised to wear his cervical collar that was prescribed by Neurosurgery. The patient is not wearing the regular collar due to pushing into his chest. He was advised that he could be paralyzed if he does not wear the collar. DIET: Regular diet. DISCHARGE INSTRUCTIONS: The patient should follow up with his PCP for further blood pressure titration. He should follow up with Dr. Russ from Neurosurgery in 1 to 2 weeks. The patient states he has an appointment already. Job ID: [id number] [facility]
== END 2019-01-22 16:12 | disposition home or self-care (01) ==
LOC: ERS 14:29 → 2SW 18:52
PROVIDERS: ADMIT Internal Medicine; ATTEND Internal Medicine
DX: I95.1 Orthostatic hypotension (principal); F10.10 Alcohol abuse, uncomplicated; E53.8 Deficiency of other specified B group vitamins; E78.5 Hyperlipidemia, unspecified; N40.0 Benign prostatic hyperplasia without lower urinary tract symptoms; F17.290 Nicotine dependence, other tobacco product, uncomplicated; F32.9 Major depressive disorder, single episode, unspecified; N17.9 Acute kidney failure, unspecified; G80.9 Cerebral palsy, unspecified; Z79.899 Other long term (current) drug therapy; Z88.0 Allergy status to penicillin; Z88.8 Allergy status to other drugs, medicaments and biological substances
CPT/HCPCS: 36415; 71045; 80048; 80053; 81003; 81015; 82533; 82607; 82746; 83605; 83690; 83735; 84443; 84484; 85025; 85610; 85730; 86850; 86900; 86901; 87086; 93005; 94760; 96361; 96374; G0378; J1100